=== PATIENT | male | born 1995 ===

== ENCOUNTER 2016-07-06 15:48 | Emergency (ER) | payer BC ==
[2016-07-06 15:56] VITALS: BP 126/81
--- NOTE | 2016-07-06 16:03 | UC ---
Throat Pain/Nasal Floyd HPI - HPI Summary HPI Summary: The patient comes in today for: 1. Sore throat: Onset: 3 days ago. Palliative/provocative: Swallowing makes it worse. Quality: Tightness of the throat. Region: Posterior pharynx. Severity: 5/10 Time: Constant Associated symptoms: All symptoms were: Sore throat, diarrhea, cold chills, felt hot, but no fever , cough. But cough is gone now. The cold chills have gone away. Stooling: he has been having 5 stools a day. Brown liguid. ABdominal pain: None. Urination: normal. Clear--not yellow. Nasal congestion: None--no rhinitis. Mononucleosis: None. He states that he mainly wants to come in rule out having strep because his friend has it. * - History of Current Complaint Chief Complaint: UCGeneralIllness Stated Complaint: COUGH Time Seen by Provider: 07/06/16 15:52 Hx Obtained From: Patient - Allergies/Home Medications Allergies/Adverse Reactions: Allergies Allergy/AdvReac Type Severity Reaction Status Date / Time No Known Allergies Allergy Verified 07/06/16 15:55 Home Medications: Home Medications NK [No Home Medications Reported] 07/06/16 [History Confirmed 07/06/16] PMH/Surg Hx/FS Hx/Imm Hx Previously Healthy: No - Hx of Non-Hodgkins Lymphoma (no chemo needed). Endocrine History Of: Denies: Diabetes, Thyroid Disease, Hyperthyroidism, Hypothyroidism, Dyslipidemia Cardiovascular History Of: Denies: Cardiac Disorders, Hypertension, Pacemaker/ICD, Myocardial Infarction , Congestive Heart Failure, Atrial Fibrillation, Deep Vein Thrombosis, Bleeding Disorders Respiratory History Of: Denies: COPD, Asthma, Bronchitis, Pneumonia, Pulmonary Embolism GI/ History Of: Denies: Gastroesophageal Reflux, Ulcer, Gastrointestinal Bleed, Gall Bladder Disease, Kidney Stones, Diverticulitis, Renal Disease, Urosepsis Neurological History Of: Denies: TIA, CVA, Dementia, Seizures, Migraine Psychological History Of: Denies: Anxiety, Depression, Bipolar Disorder, Schizophrenia, Post Traumatic Stress Disorder Cancer History Of: Denies: Lung Cancer, Colorectal Cancer, Breast Cancer, Prostate Cancer, Cervical Cancer Other History Of: Negative For: HIV, Hepatitis B, Hepatitis C, Anticoagulant Therapy - Surgical History Surgical History: Yes Surgery Procedure, Year, and Place: Achillies left - Family History Known Family History: Positive: Hypertension Negative: Cardiac Disease - Social History Occupation: Employed Full-time Alcohol Use: Occasionally Substance Use Type: None Smoking Status (MU): Never Smoked Tobacco Review of Systems Constitutional: Negative Skin: Negative Eyes: Negative ENT: Sore Throat Respiratory: Negative Cardiovascular: Negative Gastrointestinal: Diarrhea Genitourinary: Negative All Other Systems Reviewed And Are Negative: Yes Physical Exam Triage Information Reviewed: Yes Appearance: Well-Appearing, No Pain Distress, Well-Nourished Vital Signs: Initial Vital Signs Temp 99.3 F 07/06/16 15:51 Pulse 82 07/06/16 15:51 Resp 16 07/06/16 15:51 BP 126/81 07/06/16 15:51 Pulse Ox 98 07/06/16 15:51 Vital Signs Reviewed: Yes Eyes: Positive: Conjunctiva Clear. Negative: Discharge ENT: Positive: Hearing grossly normal. Negative: Pharyngeal erythema, Nasal congestion, Nasal drainage, TM bulging, TM dull, TM red, Tonsillar swelling, Tonsillar exudate Dental: Negative: Gross Decay/Caries @, Dental Fracture @ Neck: Positive: Supple, Nontender, No Lymphadenopathy. Negative: Nuchal Rigidity Respiratory: Positive: Lungs clear, No respiratory distress, No accessory muscle use. Negative: Crackles, Wheezing Cardiovascular: Positive: RRR, No Murmur Abdomen Description: Positive: Nontender, No Organomegaly, Soft. Negative: Distended, Guarding Musculoskeletal: Positive: Strength Intact, ROM Intact Neurological: Positive: Alert, Muscle Tone Normal Psychological: Positive: Age Appropriate Behavior, Consolable Skin: Negative: rashes, breakdown Diagnostics - Laboratory Diagnostic Studies Completed/Ordered: Strep test: (-) Throat Pain/Nasal Course/Dx - Course Course Of Treatment: Patient told of his negative strep test and my recommendation to continue with his present treatment. He is to keep the fluids going and advance his diet as tolerated. IF he does not continue to do well, he is to be seen again. - Differential Dx/Diagnosis Provider Diagnoses: Viral syndrome. viral pharyngitis. Viral gastroenteritis Discharge - Discharge Plan Condition: Stable Disposition: HOME Patient Education Materials: Viral Syndrome (ED), Pharyngitis (ED), Gastroenteritis (ED) Forms: *Work Release Referrals: Shira Eaton MD [Primary Care Provider] - If Needed
== END 2016-07-06 16:29 | disposition home or self-care (01) ==
LOC: UCCORT 15:48
DX: B34.9 Viral infection, unspecified (principal); J02.9 Acute pharyngitis, unspecified; A08.4 Viral intestinal infection, unspecified
CPT/HCPCS: 87651; 99201; G0463